=== PATIENT | male | born 2000 | race American Indian/Alaskan Native ===

== ENCOUNTER 2020-10-25 02:35 | Emergency (ER) | payer SELFPAY ==
[2020-10-25 04:27] VITALS: BP 115/69
--- NOTE | 2020-10-25 08:08 | Emergency Department Report ---
ED General Adult HPI - General Chief complaint: Dental/Oral Stated complaint: MOUTH INFECTION Time Seen by Provider: 10/25/20 08:03 Source: patient Mode of arrival: Ambulatory Limitations: No Limitations - History of Present Illness Initial comments: 20-year-old -[place] male patient presents with complaints of right lower dental pain x2 months, worsening over the past 8 days. Patient states he has made an appointment with a dental specialist but it is not until November 11. He rates his current pain as a 6/10 in severity and states it worsens with chewing. No facial swelling, dysphagia, difficulty opening his jaw, or fever/chills/sweats per patient. He denies any past medical history or allergies -: Gradual - Related Data Allergies Allergy/AdvReac Type Severity Reaction Status Date / Time No Known Allergies Allergy Unverified 10/25/20 04:27 ED Review of Systems ROS: Stated complaint: MOUTH INFECTION Other details as noted in HPI Constitutional: denies: chills, fever Respiratory: denies: cough Cardiovascular: denies: chest pain Skin: denies: rash, lesions, change in color Neurological: denies: headache, numbness, paresthesias Hematological/Lymphatic: denies: swollen glands ED Past Medical Hx - Past Medical History Previous Medical History?: No - Surgical History Past Surgical History?: No ED Physical Exam - General Limitations: No Limitations General appearance: alert, in no apparent distress - Head Head exam: Present: atraumatic, normocephalic - Eye Eye exam: Present: normal appearance - ENT ENT exam: Present: normal orophraynx - Expanded ENT Exam Expanded Teeth exam: Present: dental caries 1 - Dental Tenderness (Deep dental carry noted with moderate erythema of the gums; no overlying facial swelling or dental abscess noted) - Neck Neck exam: Present: normal inspection. Absent: lymphadenopathy - Respiratory Respiratory exam: Absent: respiratory distress - Cardiovascular Cardiovascular Exam: Present: regular rate - Neurological Exam Neurological exam: Present: alert, oriented X3 - Psychiatric Psychiatric exam: Present: normal affect, normal mood - Skin Skin exam: Present: warm, dry, intact, normal color. Absent: rash ED Course Vital Signs 10/25/20 04:21 Temperature 98.3 F Pulse Rate 67 Respiratory 18 Rate Blood Pressure 115/69 O2 Sat by Pulse 99 Oximetry ED Medical Decision Making - Medical Decision Making 20-year-old -[place] male patient presents with complaints of right l ower dental pain x2 months, worsening over the past 8 days. Patient states he has made an appointment with a dental specialist but it is not until November 11. He rates his current pain as a 6/10 in severity and states it worsens with chewing. No facial swelling, dysphagia, difficulty opening his jaw, or fever/chills/sweats per patient. He denies any past medical history or allergies Right lower deep dental carry with surrounding erythema noted on exam without obvious dental abscess or facial swelling. Will treat with Amoxil. Patient to follow-up with his dental specialist sooner if possible. Discussed in great detail signs and symptoms that should prompt immediate return to the emergency department with patient who verbalizes understanding. He is well-appearing, his vitals are normal, he is stable for discharge home. Patient verbalizes understanding of diagnosis, care plan, and denies any further questions Critical care attestation.: If time is entered above; I have spent that time in minutes in the direct care of this critically ill patient, excluding procedure time. ED Disposition Clinical Impression: Infected dental caries Disposition: - TO HOME OR SELFCARE Is pt being admited?: No Condition: Stable Instructions: Dental Abscess, [id number]
== END 2020-10-25 09:05 | disposition home or self-care (01) ==
LOC: ED 02:35
DX: K04.7 Periapical abscess without sinus (principal)
CPT/HCPCS: 99281

== ENCOUNTER 2020-10-25 21:50 | Emergency (ER) | payer OTHER ==
[2020-10-25 23:21] VITALS: BP 124/73
[2020-10-26] MEDS ORDERED: TETANUS,DIPH,PERTUSS(ACELL) VACCINE 0.5 ML SYRINGE IM ONE (05:16)
[2020-10-26] MEDS ORDERED: oxyCODONE /ACETAMINOPHEN 5-325MG TAB PO ONE (05:18)
--- NOTE | 2020-10-26 05:23 | Emergency Department Report ---
ED Animal Bite HPI - General Chief Complaint: Animal Bite Stated Complaint: DOG BITE INJURY Time Seen by Provider: 10/26/20 05:15 Source: patient Mode of arrival: Ambulatory Limitations: No Limitations - History of Present Illness MD Complaint: animal bite -: Sudden, hour(s) Location: abdomen Animal: dog Mechanism: bite Pain Description: dull Context: unprovoked (Neighborhood dog) Associated Symptoms: denies: discharge from wound, loss of consciousness, cough, diaphoresis, shortness of breath - Related Data Previous Rx's Medication Instructions Recorded Last Taken Type Acetaminophen/Codeine [Tylenol 1 tab PO Q8H PRN #4 tab 10/25/20 Unknown Rx /Codeine # 3 tab] Amoxicillin [Trimox CAP] 500 mg PO Q8H 7 Days #21 capsule 10/25/20 Unknown Rx Ibuprofen [Motrin 800 MG tab] 800 mg PO Q8HR PRN #20 tablet 10/25/20 Unknown Rx Amoxicillin/Potassium Clav 1 each PO BID #20 tablet 10/26/20 Unknown Rx [Augmentin 875-125 Tablet] Chlorhexidine Gluconate [Hibiclens] 10 ml TP BID #240 liquid 10/26/20 Unknown Rx traMADoL [Ultram] 50 mg PO Q6HR PRN #20 tablet 10/26/20 Unknown Rx Allergies Allergy/AdvReac Type Severity Reaction Status Date / Time No Known Allergies Allergy Unverified 10/25/20 04:27 ED Review of Systems ROS: Stated complaint: DOG BITE INJURY Other details as noted in HPI Comment: All other systems reviewed and negative ED Past Medical Hx - Past Medical History Previous Medical History?: No - Surgical History Past Surgical History?: No - Medications Home Medications: Home Medications Medication Instructions Recorded Confirmed Last Taken Type Acetaminophen/Codeine [Tylenol 1 tab PO Q8H PRN #4 tab 10/25/20 Unknown Rx /Codeine # 3 tab] Amoxicillin [Trimox CAP] 500 mg PO Q8H 7 Days #21 capsule 10/25/20 Unknown Rx Ibuprofen [Motrin 800 MG tab] 800 mg PO Q8HR PRN #20 tablet 10/25/20 Unknown Rx Amoxicillin/Potassium Clav 1 each PO BID #20 tablet 10/26/20 Unknown Rx [Augmentin 875-125 Tablet] Chlorhexidine Gluconate [Hibiclens] 10 ml TP BID #240 liquid 10/26/20 Unknown Rx traMADoL [Ultram] 50 mg PO Q6HR PRN #20 tablet 10/26/20 Unknown Rx ED Physical Exam - General Limitations: No Limitations General appearance: alert, in no apparent distress - Head Head exam: Present: atraumatic, normocephalic - Eye Eye exam: Present: normal appearance, EOMI Pupils: Present: normal accommodation - ENT ENT exam: Present: normal exam, normal orophraynx, mucous membranes moist, TM's normal bilaterally - Neck Neck exam: Present: normal inspection, full ROM - Respiratory Respiratory exam: Present: normal lung sounds bilaterally. Absent: respiratory distress - Cardiovascular Cardiovascular Exam: Present: regular rate, normal rhythm. Absent: systolic murmur, diastolic murmur, rubs, gallop - GI/Abdominal GI/Abdominal exam: Present: soft, normal bowel sounds, other (Superficial dull teeth benton/abrasions to the left flank area of the abdomen no puncture wounds appreciated. No cellulitis no subcutaneous emphysema no active bleeding or discharge from the wound no lymphangitis) - Rectal Rectal exam: Present: deferred - Extremities Exam Extremities exam: Present: normal inspection - Back Exam Back exam: Present: normal inspection - Neurological Exam Neurological exam: Present: alert, oriented X3 - Psychiatric Psychiatric exam: Present: normal affect, normal mood - Skin Skin exam: Present: warm, dry, normal color, abrasion (at bite site). Absent: rash ED Course Vital Signs 10/25/20 10/26/20 23:19 06:00 Temperature 99.5 F Pulse Rate 70 73 Respiratory 16 16 Rate Blood Pressure 124/73 O2 Sat by Pulse 98 100 Oximetry Critical care attestation.: If time is entered above; I have spent that time in minutes in the direct care of this critically ill patient, excluding procedure time. ED Disposition Clinical Impression: Dog bite Disposition: HOME / SELF CARE / HOMELESS Is pt being admited?: No Does the pt Need Aspirin: No Condition: Stable Instructions: Animal Bite, Adult Prescriptions: Amoxicillin/Potassium Clav [Augmentin 875-125 Tablet] 1 each PO BID #20 tablet Chlorhexidine Gluconate [Hibiclens] 10 ml TP BID #240 liquid traMADoL [Ultram] 50 mg PO Q6HR PRN #20 tablet PRN Reason: Pain Referrals: PRIMARY CARE,MD [Primary Care Provider] - 3-5 Days [facility] [place] [Provider Group] - 3-5 Days
== END 2020-10-26 06:00 | disposition home or self-care (01) ==
LOC: ED 21:50
DX: S31.159A Open bite of abdominal wall, unspecified quadrant without penetration into peritoneal cavity, initial encounter (principal); W54.0XXA Bitten by dog, initial encounter; Y93.89 Activity, other specified; Y92.89 Other specified places as the place of occurrence of the external cause; Y99.8 Other external cause status
CPT/HCPCS: 90471; 90715; 99282